=== PATIENT | female | born 1985 | race Hispanic/Latino ===

== ENCOUNTER → 2024-02-11 | Day surgery (SDC) | payer OTHER ==
[~2024-02-11] MED LIST: PHENYLEPHRINE HCL 1% 10 MG/ML VIAL ONE; PROPOFOL IV EMULSION 50 ML IV ONE; SIMETHICONE 40 MG/0.6 ML BTL ONE; SODIUM CHLORIDE 0.9% 100 ML ONE
[2024-02-11] MEDS: LACTATED RINGER'S 1,000 ML ONE (11:49)
[2024-02-11 15:05] VITALS: TEMP 97
[2024-02-11 15:25] VITALS: BP 138/74; PULSE 78; RESP 18; O2SAT 99
== END | disposition home or self-care (01) ==
LOC: OR 11:03
PROVIDERS: ATTEND Internal Medicine Gastroenterology
DX: K21.00 Gastro-esophageal reflux disease with esophagitis, without bleeding (principal); R13.19 Other dysphagia; K29.50 Unspecified chronic gastritis without bleeding; B96.81 Helicobacter pylori [H. pylori] as the cause of diseases classified elsewhere; D12.4 Benign neoplasm of descending colon; K63.5 Polyp of colon; K52.9 Noninfective gastroenteritis and colitis, unspecified; K59.09 Other constipation; K64.8 Other hemorrhoids; K62.89 Other specified diseases of anus and rectum; K62.5 Hemorrhage of anus and rectum
CPT/HCPCS: 43239; 43450; 45380; 45385; 81025; J2371; J2470; J2704; J7050; J7121; 45378